=== PATIENT | male | born 1970 | race Caucasian/White ===

== ENCOUNTER 2016-03-14 22:27 | Emergency (ER) | payer SELFPAY ==
[~2016-03-14] VITALS: Ht 182.9 cm; Wt 74.5 kg
[2016-03-14 22:48] VITALS: Ht 182.9 cm; Wt 74.5 kg
[2016-03-14] MEDS ORDERED: BACTDS PO (23:25)
[2016-03-14] MEDS ORDERED: CEPH-443 PO (23:25)
[2016-03-14] MEDS ORDERED: NAPR-260 PO (23:26)
[2016-03-14] MEDS ORDERED: TRIMETHOPRIM/SULFAMETHOX (DS) TAB PO ONE (23:30)
[2016-03-14] MEDS ORDERED: CEPHALEXIN 500 MG CAP PO ONE (23:30)
--- NOTE | 2016-03-14 23:40 | ERD ---
ER Documentation Chief Complaint Date/Time DATE: 03/14/16 TIME: 23:29 Chief Complaint SCRATCH ON RT WRIST 2 WKS AGO-NOW ITS RED,PAINFUL,DRAINING HPI This is a 45 year old male presenting to the emergency department complaining of right wrist erythema and tenderness, patient got a scratch 2 weeks ago which started to get red and painful this Saturday. Patient denies any restricted range of motion however he states that he feels tight when he moves his wrist. ROS All systems reviewed and are negative except as per history of present illness. Medications Home Meds Active Scripts Naproxen* (Naprosyn*) 500 Mg Tablet, 500 MG PO BID Y for PAIN AND/OR INFLAMMATION, #30 TAB Prov:ELIECER VELEZ PA-C 03/14/16 Sulfamethoxazole-Trimethoprim* (Bactrim* DS) 800-160 Mg Tab, 1 TAB PO BID for 7 Days, TAB Prov:ELIECER VELEZ PA-C 03/14/16 Cephalexin* (Keflex*) 500 Mg Capsule, 500 MG PO QID for 10 Days, CAP Prov:ELIECER VELEZ PA-C 03/14/16 PMhx/Soc Hx Alcohol Use: No Hx Substance Use: No Hx Tobacco Use: No Smoking Status: Never smoker Physical Exam Vitals Vital Signs Date Time Temp Pulse Resp B/P Pulse Ox O2 Delivery O2 Flow Rate FiO2 03/14/16 22:48 97.5 97 16 143/94 99 Physical Exam General: WD/WN, in no apparent distress, non-toxic appearing HENT: NC/AT Eyes: Conjunctiva normal Neck: Supple Pulm: Clear to auscultation, normal labored breathing; no wheezing/rales/ rhonchi heard CV: Good capillary refill GI: Non-distended, no guarding Back: No masses Ext: No clubbing, cyanosis, or edema Neuro: Moves on all fours Skin: 3cm [id number] on right lateral dorsal wrist with surrounding 3cm erythema, induration. No evidence of streaking Normal turgor, color, and temperature. No ulcerations or rashes noted. Psych: Normal mood Results 24 hrs Current Medications Medications (Trade) Dose Ordered Sig/Alfredito Route PRN Reason Start Time Stop Time Status Last Admin Dose Admin Cephalexin (Keflex) 500 mg ONCE ONCE PO 03/14/16 23:30 03/14/16 23:31 Trimethoprim/ Sulfamethoxazole (Bactrim (Ds)) 1 tab ONCE ONCE PO 03/14/16 23:30 03/14/16 23:31 Procedures/MDM This is a 45-year-old male presenting to the emergency room with signs and symptoms that are most consistent with cellulitis on his right wrist from a abrasion that occurred 2 weeks ago. There is no evidence of lymphangitis, osteomyelitis, necrotizing fasciitis or bacteremia. Patient had full range of motion. Patient is suitable for outpatient antibiotics Keflex and Bactrim for the next week. In the ED patient was given his first dose. The wounds were cleansed with Betadine iodine and irrigated, bacitracin was applied with sterile gauze. I discussed a 2 day wound check, discussed return to the ER for any worsening signs or symptoms. Patient is healing stable and neurovascular intact for discharge. Patient understands and agrees with this plan. Departure Diagnosis: Primary Impression: Cellulitis Site of cellulitis: extremity Site of cellulitis of extremity: upper extremity Laterality: right Qualified Code: L03.113 - Cellulitis of right upper extremity Condition: Stable Patient Instructions: Cellulitis Referrals: [facility] YOU HAVE RECEIVED A MEDICAL SCREENING EXAM AND THE RESULTS INDICATE THAT YOU DO NOT HAVE A CONDITION THAT REQUIRES URGENT TREATMENT IN THE EMERGENCY DEPARTMENT. FURTHER EVALUATION AND TREATMENT OF YOUR CONDITION CAN WAIT UNTIL YOU ARE SEEN IN YOUR DOCTORS OFFICE WITHIN THE NEXT 1-2 DAYS. IT IS YOUR RESPONSIBILITY TO MAKE AN APPOINTMENT FOR FOLOW-UP CARE. IF YOU HAVE A PRIMARY DOCTOR --you should call your primary doctor and schedule an appointment IF YOU DO NOT HAVE A PRIMARY DOCTOR YOU CAN CALL OUR PHYSICIAN REFERRAL HOTLINE AT IF YOU CAN NOT AFFORD TO SEE A PHYSICIAN YOU CAN CHOSE FROM THE FOLLOWING [facility] [id number] [facility] [address] [facility] [address] [facility] [address] [facility] [address] [facility]. [facility]. [address] [facility] Additional Instructions: Follow up in 2 days in your clinic for wound check. Take all medicines as directed. Return to this facility if you are not improving as expected. FOLLOW UP WITH YOUR PRIMARY CARE PHYSICIAN TOMORROW.Return to this facility if you are not improving as expected. ELIECER VELEZ PA-C Mar 14, 2016 23:39
== END 2016-03-15 | disposition home or self-care (01) ==
LOC: FTE 22:27
DX: L03.113 Cellulitis of right upper limb (principal)
CPT/HCPCS: 99284